=== PATIENT | female | born 1960 | race Caucasian/White ===

== ENCOUNTER → 2019-02-08 14:35 | Outpatient (CLI) | payer OTHER, SELFPAY ==
--- NOTE | 2019-02-08 14:39 | XR_ITS ---
PROCEDURE: XR ELBOW RT MIN 3V CLINICAL INDICATION: right elbow pain COMPARISON: No exams were available for comparison FINDINGS: No fracture or dislocation. No lytic or blastic change. There is normal mineralization. The joint spaces are well-preserved. No significant degenerative/arthritic changes. No erosive changes evident. Other findings:None. IMPRESSION: No acute findings. Dictated by: Hany Trevizo 02/08/2019 15:15 Electronically signed by Hany Trevizo in [facility] 02/08/2019 15:15
--- NOTE | 2019-02-08 14:39 | XR_ITS ---
PROCEDURE: XR WRIST RT MIN 3V CLINICAL INDICATION: evaluate for a right wrist fracture Fell off a hover board with pain and swelling COMPARISON: XR WRIST RIGHT PA LATERAL AND OBLIQUE from 02/05/2019 FINDINGS: There is a comminuted fracture of the distal radius. There is some dorsal displacement of distal fracture fragments. Incidental note is made of an approximately 5 millimeter degenerative cyst at the base of the ulnar styloid process. IMPRESSION: Fracture distal radius. Dictated by: Hany Trevizo 02/08/2019 15:18 Electronically signed by Hany Trevizo in [facility] 02/08/2019 15:18
== END ==
PROVIDERS: PCP Family Medicine; Visit Provider Orthopaedic Surgery
DX: M25.531 Pain in right wrist (principal); M25.521 Pain in right elbow
CPT/HCPCS: 73080; 73110

== ENCOUNTER → 2019-02-09 11:14 | Outpatient (CLI) | payer OTHER, SELFPAY ==
--- NOTE | 2019-02-09 11:55 | ECG_ITS ---
APPROVED REPORT Exam: Resting ECG HR:56 bpm ECG Measurements Heart Rate 56 AXES ND 156 P 77 QRSd 82 QRS 83 QT 430 T 81 QTc 414 <Conclusion> Sinus bradycardia Late r wave progression - unchanged Abnormal ECG Electronically signed by : Francis Vergara, 02/09/2019 12:04:03
--- NOTE | 2019-02-09 12:00 | CT_ITS ---
PROCEDURE: CT WRIST RT WO CON CLINICAL HISTORY: distal radius fx; preop evaluation Injury with pain, fracture evaluation COMPARISON: XR WRIST RT MIN 3V from 02/08/2019 TECHNIQUE: Axial images obtained with sagittal and coronal reformats. All CT scans at the facility use one or more dose reduction, viz: automated exposure control, ma/kV adjustment per patient size (including targeted exams where dose is matched to indication, i.e. head), or iterative reconstruction technique. FINDINGS: There is a mildly impacted fracture involving the distal aspect of the radius. A dorsal fragment is slightly displaced posteriorly by proximally 5 mm. There is minimal loss of the normal volar inclination of the distal radius. The fracture does not appear have an intra-articular component. The distal radioulnar joint appears intact. There is a well-circumscribed bilocular there is sub chondral cyst involving the ulnar styloid process at 9 x 4 mm. IMPRESSION: Mildly impacted distal radial fracture with dorsal displacement distal fracture fragment as described above. No obvious intra-articular involvement Dictated by: Ramin Bah MD 02/11/2019 09:34 Electronically signed by Ramin Bah MD in [facility] 02/11/2019 09:34
--- NOTE | 2019-02-09 12:01 | XR_ITS ---
PROCEDURE: XR CHEST 2V CLINICAL HISTORY: H/O TOBACCCO USE Smoker, heart disease COMPARISON: No exams were available for comparison FINDINGS: The cardiomediastinal silhouette and pulmonary vascularity are within normal limits. The lungs are clear without infiltrates, suspicious nodules, or pleural effusions. No acute bony abnormalities. IMPRESSION: No acute findings. Dictated by: Ramin Bah MD 02/09/2019 16:29 Electronically signed by Ramin Bah MD in [facility] 02/09/2019 16:29
[2019-02-09 12:16] LABS: Basophils # 0.1 K/mm3 (0-0.2); Basophils % 1.2 % (0.1-2.0); Eosinophils # 0.4 K/mm3 (0.0-0.4); Hematocrit 33.7 % (37.0-47.0); Lymphocytes # 1.7 K/mm3 (0.7-4.5); Lymphocytes % 29.2 % (10-50); Mean Corpuscular HGB Conc 32.6 g/dL (31.8-35.4); Mean Corpuscular Hemoglobin 30.8 pg (27.0-31.2); Mean Corpuscular Volume 94.6 fl (81-99); Monocytes # 0.3 K/mm3 (0.1-1.0); Monocytes % 4.9 % (1.7-9.3); Neutrophils # 3.4 K/mm3 (1.8-7.8); Neutrophils % 58.7 % (37.0-80.0); Platelet Count 184 K/mm3 (142-424); Red Blood Count 3.56 M/mm3 (4.20-5.40); Red Cell Distribution Width 13.3 % (11.5-17.5); White Blood Count 5.7 K/mm3 (4.8-10.8)
[2019-02-09 13:18] LABS: Anion Gap 15.9 mEq/L (5-15); Blood Urea Nitrogen 13 mg/dL (7-18); Carbon Dioxide 26 mmol/L (21.0-32.0); Chloride 105 mmol/L (98-107); Creatinine,Serum 0.74 mg/dL (0.55-1.02); Estimated Glomerular Filt Rate 81 ml/min (>60); GFR (African American) 98 ML/MIN (>60); Glucose 85 mg/dL (74-106); Potassium 3.9 mmoL/L (3.5-5.1); Sodium 143 mmol/L (136-145)
== END ==
PROVIDERS: Visit Provider Orthopaedic Surgery
DX: Z01.818 Encounter for other preprocedural examination (principal); S52.571A Other intraarticular fracture of lower end of right radius, initial encounter for closed fracture
CPT/HCPCS: 36415; 71046; 73200; 80048; 85025; 93005

== ENCOUNTER → 2019-02-24 10:46 | Outpatient (CLI) | payer OTHER, SELFPAY ==
--- NOTE | 2019-02-24 10:55 | XR_ITS ---
PROCEDURE: XR WRIST RT MIN 3V CLINICAL INDICATION: sp ORIF RT wrist, dos 02/14/19 COMPARISON: XR WRIST RIGHT PA LATERAL AND OBLIQUE from 02/05/2019 XR WRIST RT MIN 3V from 02/08/2019 FINDINGS: A splint device is now present. There is a compression plate with fixation screws traversing the distal radial transverse fracture. This area is unchanged. There is no abnormal angulation. Radiocarpal joint is normal. IMPRESSION: Postoperative findings as described. Dictated by: Roshan Woody 02/24/2019 11:18 Electronically signed by Roshan Woody in [facility] 02/24/2019 11:18
== END ==
PROVIDERS: PCP Family Medicine; Visit Provider Orthopaedic Surgery
DX: S52.501A Unspecified fracture of the lower end of right radius, initial encounter for closed fracture (principal); Z48.89 Encounter for other specified surgical aftercare
CPT/HCPCS: 73110

== ENCOUNTER → 2019-03-11 09:31 | Outpatient (CLI) | payer OTHER, SELFPAY ==
--- NOTE | 2019-03-11 09:37 | XR_ITS ---
PROCEDURE: XR WRIST RT MIN 3V CLINICAL INDICATION: sp ORIF rt wrist; dos 02/14/19, out of cast Follow-up ORIF COMPARISON: XR WRIST RIGHT PA LATERAL AND OBLIQUE from 02/05/2019 XR WRIST RT MIN 3V from 02/08/2019 XR WRIST RT MIN 3V from 02/24/2019 FINDINGS: Cast has been removed. Volar bone plate remains in place with multiple screws stabilizing distal radial fracture which is good alignment. IMPRESSION: Good alignment status post ORIF distal radial fracture Dictated by: Ramin Bah MD 03/11/2019 11:29 Electronically signed by Ramin Bah MD in [facility] 03/11/2019 11:29
== END ==
PROVIDERS: Visit Provider Orthopaedic Surgery
DX: Z09 Encounter for follow-up examination after completed treatment for conditions other than malignant neoplasm (principal); S52.571D Other intraarticular fracture of lower end of right radius, subsequent encounter for closed fracture with routine healing
CPT/HCPCS: 73110

== ENCOUNTER 2019-03-11 11:34 | Outpatient (RCR) | payer OTHER, SELFPAY | END 2019-03-11 12:00 | disposition home or self-care (01) | LOC: OT 11:34 | PROVIDERS: Visit Provider Orthopaedic Surgery | DX: S52.571D Other intraarticular fracture of lower end of right radius, subsequent encounter for closed fracture with routine healing (principal) | CPT/HCPCS: 97763 ==

== ENCOUNTER 2019-03-23 08:30 | Outpatient (RCR) | payer OTHER, SELFPAY ==
--- NOTE | 2019-03-16 08:59 | [facility].OTOPEV ---
OT Inpatient Evaluation Rehab OT Outpatient Eval Start: 03/16/19 08:44 Freq: Status: Active Protocol: [facility]19 08[id number] (Rec: 03/16/19 08:59 [id number] Electronically Signed By Maggie Wilson OT 03/16/19 08:44 Outpatient Therapy Subjective History Subjective History Pt is a 59 year old female who reports to therapy for initial evaluation to right wrist. Pt fell off of hover board on February 05, 2019 resulting in right wrist fracture. Pt required an ORIF on February 14, 2019. Pt demonstrates a minimal decline in AROM and strength at right wrist. 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 Pt will continue to be seen twice a week in order to address all deficits. Chief Complaint Pain,Stiff,Weakness Symptom Type Ache,Sharp Symptoms Relieved By Rest/Positioning Symptoms Aggravated By Physical Activity,Twisting, Lifting Prior Functional Limitations None Current Functional Limitations Reaching,Lifting,Housework, Dressing,Driving,Sleeping, Recreation Activity Symptom Description Intermittent,Activity Dependent Level of pain today (0-10) 0 Pain scale - at its best (0-10) 0 Pain scale - at its worst (0-10) 4 Wrist/Hand Eval Wrist Range of Motion Right Wrist Limitations of Range of Motion Pain Wrist Extension Active Range of Motion ( 38 degrees degrees) Wrist Flexion Active Range of Motion ( 45 degrees degrees) Wrist Radial Deviation Active Range of 25 degrees Motion (degrees) Wrist Ulnar Deviation Active Range of 25 degrees Motion (degrees) Forearm Supination Active Range of 90 degrees Motion (degrees) Forearm Pronation Active Range of Motion 90 degrees (degrees) Wrist Manual Muscle Testing Right Wrist Extension Strength Grade 4- Good- Wrist Flexion Strength Grade 4- Good- Wrist Radial Deviation Strength Grade 4- Good- Wrist Ulnar Deviation Strength Grade 4- Good- Forearm Supination Strength Grade 4- Good- Forearm Pronation Strength Grade 4- Good- Hot Room Attendant/Pinch Strength Left Hot Room Attendant Strength Measurement (lbs) 15 Right Hot Room Attendant Strength Measurement (lbs) 12 OT Outpatient Asses
== END 2019-03-23 08:35 | disposition home or self-care (01) ==
LOC: OT 08:30
PROVIDERS: PCP Orthopaedic Surgery; Visit Provider Orthopaedic Surgery
DX: S52.571D Other intraarticular fracture of lower end of right radius, subsequent encounter for closed fracture with routine healing (principal)
CPT/HCPCS: 97014; 97110; 97140; 97166; G0283

== ENCOUNTER → 2019-04-05 09:01 | Outpatient (CLI) | payer OTHER, SELFPAY ==
--- NOTE | 2019-04-05 09:09 | XR_ITS ---
PROCEDURE: XR WRIST RT MIN 3V CLINICAL INDICATION: sp ORIF RT wrist, sx 02/14/19 Follow-up ORIF COMPARISON: XR WRIST RIGHT PA LATERAL AND OBLIQUE from 02/05/2019 XR WRIST RT MIN 3V from 02/08/2019 XR WRIST RT MIN 3V from 02/24/2019 XR WRIST RT MIN 3V from 03/11/2019 FINDINGS: A volar bone plate remains in place with good alignment. No evidence of orthopedic complications. Are chronic cystic changes noted at the ulnar styloid IMPRESSION: Good alignment status post ORIF distal radius Dictated by: Ramin Bah MD 04/05/2019 18:59 Electronically signed by Ramin Bah MD in [facility] 04/05/2019 18:59
== END ==
PROVIDERS: PCP Family Medicine; Visit Provider Orthopaedic Surgery
DX: Z09 Encounter for follow-up examination after completed treatment for conditions other than malignant neoplasm (principal); S52.571D Other intraarticular fracture of lower end of right radius, subsequent encounter for closed fracture with routine healing
CPT/HCPCS: 73110